=== PATIENT | male | born 1985 ===

== ENCOUNTER 2020-11-17 02:04 | Emergency (ER) | payer SELFPAY ==
[2020-11-17] MEDS ORDERED: ONDANSETRON 4 MG/2 ML VIAL ONE (03:13)
[2020-11-17] MEDS ORDERED: MORPHINE 4 MG/ML SYR ONE ×2 (03:13→04:34)
[2020-11-17] MEDS ORDERED: NA CHLORIDE 0.9% 1,000 ML ONE (03:14)
[2020-11-17 03:22] LABS: Absolute Lymphocytes (CBC) 1.6 K/uL (0.7-4.9); Basophils % 0.2 % (0-1.3); Hematocrit 46.4 % (39.6-49.0); Lymphocytes % 9.3 % (15.3-44.8); MPV 9.1 fL (7.6-11.3)
[2020-11-17 03:26] LABS: Protime INR 0.98
[2020-11-17 03:34] LABS: Albumin 4.4 g/dL (3.4-5.0); Bilirubin Direct 0.1 mg/dL (0-0.2); Bilirubin Total 0.5 mg/dL (0.2-1.0); Potassium 3.8 mmol/L (3.5-5.1); Protein, Total 7.9 g/dL (6.4-8.2)
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
[2020-11-17 05:16] VITALS: O2SAT 94
[2020-11-17 05:19] VITALS: BP 135/94; TEMP 98.6
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
== END 2020-11-17 05:06 | disposition short-term general hospital (02) ==
LOC: ER 02:04
PROC: 0RSMXZZ Reposition Left Elbow Joint, External Approach (ICD-10-PCS; principal; 2020-11-17)
DX: S53.105A Unspecified dislocation of left ulnohumeral joint, initial encounter (principal); V28.4XXA Motorcycle driver injured in noncollision transport accident in traffic accident, initial encounter
CPT/HCPCS: 36415; 70450; 71260; 72125; 73206; 74177; 80048; 80076; 85025; 85610; 85730; 86850; 86900; 86901; 96361; 96374; 96375; 99285; G0390; J2405; J7030; Q9967